=== PATIENT | male | born 1975 | race Caucasian/White ===

== ENCOUNTER 2025-02-02 00:21 | Day surgery (SDC) | payer BC, SELFPAY ==
[2025-01-29 09:56] VITALS: BMI 27.8
[2025-02-02 08:44] VITALS: BP 134/83; PULSE 76; RESP 18; TEMP 35.9; O2SAT 100
[2025-02-02] MEDS: LACTATED RINGERS 1,000 ML 150 ML IV CONT (08:54)
--- NOTE | 2025-02-02 09:19 | WPDANESEPPF ---
Anes - Initial Pre Proc Eval Procedure: Operation Date: 02/02/25 10:00 Proposed Procedures p Screening Colonoscopy - Giuliano Wang MD Date/Time: 02/02/25 09:19 Surgeon: Giuliano Wang MD Pre Op Diagnosis: screening malignant neoplasm of colon Patient Data Age: 49 Gender: M Height: 1.83 m Weight: 90.6 kg Last Vital Signs Temp 35.9 C L 02/02/25 08:44 Pulse 76 02/02/25 08:44 Resp 18 02/02/25 08:44 BP 134/83 02/02/25 08:44 Pulse Ox 100 02/02/25 08:44 O2 Del Method Room Air 02/02/25 08:44 Allergies Allergy/AdvReac Type Severity Reaction Status Date / Time No Known Allergies Allergy Verified 02/02/25 08:43 Home Medications ?Medication ?Instructions ?Recorded ?Confirmed ?Type No Home Medications 11/21/24 02/02/25 History Patient hx anesthesia problems: none Family hx anesthesia problems: none Results Review: All pre-operative results and documents have been reviewed as part of the pre-operative evaluation. [facility] Social History Social History Smoking status: Former smoker Smoking end date: 08/30/13 Alcohol intake: current Substance use type: does not use Do You Feel Safe in your Home?: Yes Lack of Transportation: No Lack of Food: Never True Current Housing: I Have Housing Living arrangements: with family Occupation/Education: occupation Gender identity (if verbalized by the patient): Male Anes - Eval Final PreProcedure Day of Procedure 02/02/25 09:19 Patient weight: overweight Heart: regular rate and rhythm Lungs: clear to auscultation Airway: Mallampati scale class II Neurological: alert and oriented Last oral intake: >/= 8 hours ASA classification: II Emergent: no Anesthetic plan: proceed Anesthesia type and monitoring: general GIVS and standard monitoring Results Review: All pre-operative results and documents have been reviewed as part of the pre-operative evaluation. Informed Consent: The patient's anesthetic plan and its attendant risks and benefits were discussed with the patient/family/POA. Questions were solicited and answers provided to the satisfaction of the patient/family/POA.
--- NOTE | 2025-02-02 10:04 | PM.IMHP ---
H&P: HPI History of Present Illness Date/Time: 02/02/25 10:04 Chief Complaint: Screening colonoscopy Narrative: This is the patient's first colonoscopy. There are no GI symptoms and there is no family history of colorectal cancer. Review of Systems Review of Systems: All systems reviewed & are unremarkable except as noted in HPI and below [facility] Social History Social History Smoking status: Former smoker Smoking end date: 08/30/13 Alcohol intake: current Substance use type: does not use Do You Feel Safe in your Home?: Yes Lack of Transportation: No Lack of Food: Never True Current Housing: I Have Housing Living arrangements: with family Occupation/Education: occupation Gender identity (if verbalized by the patient): Male Meds Home Medications and Allergies Home Medications ?Medication ?Instructions ?Recorded ?Confirmed ?Type No Home Medications 11/21/24 02/02/25 History Allergies Allergy/AdvReac Type Severity Reaction Status Date / Time No Known Allergies Allergy Verified 02/02/25 08:43 Vital Signs Vital Signs - 24 hr 02/02/25 08:44 Temperature 96.7 F L Pulse Rate 76 Respiratory Rate 18 Blood Pressure 134/83 Pulse Oximetry 100 Oxygen Delivery Room Air Exam Const: General: cooperative and healthy appearing Resp: Effort & Inspection: normal respiratory effort and able to speak in complete sentences Auscultation: clear to auscultation bilaterally Cardio: Rate: regular rate Rhythm: regular rhythm GI: Inspection: normal to inspection GI Palp: No No hepatosplenomegaly present Auscultation: normal bowel sounds Rectal Exam: deferred Skin: General skin exam: normal color Psych: Appearance: grossly normal Mental Status: mental status grossly normal Assessment and Plan Assessment and plan (1) Encounter for screening colonoscopy: Code(s): Z12.11 - Encounter for screening for malignant neoplasm of colon Status: Acute Assessment and Plan: The patient is deemed a good candidate for the procedure. Consent signed. Will proceed.
--- NOTE | 2025-02-02 10:24 | S_PTH ---
PATIENT: Ernst Bailey LOC: [facility]#:[id number] AGE/SX: 49/M ROOM: RE02/02/[address]: Giuliano Wang MD : 1975 BED: DIS: 02/02/2025 SPEC #: [id number] RECD: 02/02/25 11:13 STATUS: JOVAN REYaz #: [id number] LULY: 02/02/25 10:[address]: Giuliano Wang DEPT: [facility] Surgical RECD BY: Lisy Newby ENTERED: 02/02/25 11:15 SP TYPE: Surgical OTHR DR: Danny Salinas MD Tissues: A - Colon Polypectomy B - Colon Polypectomy Procedures: Hematoxylin and Eosin Stain Gross and Microscopic Level 4
[2025-02-02 10:27] VITALS: BP 106/68; PULSE 77; RESP 16; O2SAT 99
[2025-02-02 10:37] VITALS: BP 106/73; PULSE 72; RESP 17; O2SAT 99
[2025-02-02 10:47] VITALS: BP 114/77; PULSE 57; RESP 13; O2SAT 99
== END 2025-02-02 10:55 | disposition home or self-care (01) ==
PROVIDERS: PCP Family Medicine; Referring Provider Family Medicine; Visit Provider Internal Medicine Gastroenterology
PROC: 0DJD8ZZ Inspection of Lower Intestinal Tract, Via Natural or Artificial Opening Endoscopic (ICD-10-PCS; CPT 45378; principal; 2025-02-02 10:00)
DX: Z12.11 Encounter for screening for malignant neoplasm of colon (principal); D12.0 Benign neoplasm of cecum; D12.2 Benign neoplasm of ascending colon; Z87.891 Personal history of nicotine dependence
CPT/HCPCS: 45385; 88305; J2003; J2704; J7120